=== PATIENT | male | born 1960 | race Caucasian/White ===

== ENCOUNTER 2017-10-11 06:56 | Emergency (ER) | payer OTHER, BC ==
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
[2017-10-11 07:14] VITALS: BP 140/96
== END 2017-10-11 07:42 | disposition home or self-care (01) ==
LOC: EDUNIT#
DX: S16.1XXA Strain of muscle, fascia and tendon at neck level, initial encounter (principal); S40.012A Contusion of left shoulder, initial encounter; I10 Essential (primary) hypertension; V59.40XA Driver of pick-up truck or van injured in collision with unspecified motor vehicles in traffic accident, initial encounter; Y92.410 Unspecified street and highway as the place of occurrence of the external cause; Y99.8 Other external cause status; Y93.89 Activity, other specified

== ENCOUNTER → 2017-10-12 | Outpatient (CLI) | payer OTHER, BC | LOC: BMCIMAGING 13:51 | PROVIDERS: ATTEND Internal Medicine | DX: M54.12 Radiculopathy, cervical region (principal); M79.602 Pain in left arm; M50.30 Other cervical disc degeneration, unspecified cervical region; M25.78 Osteophyte, vertebrae; M48.02 Spinal stenosis, cervical region; V89.9XXA Person injured in unspecified vehicle accident, initial encounter ==

== ENCOUNTER → 2017-10-27 | Outpatient (CLI) | payer BC, OTHER | LOC: FIMAGING 13:32 | PROVIDERS: ATTEND Internal Medicine | DX: M54.12 Radiculopathy, cervical region (principal); M50.30 Other cervical disc degeneration, unspecified cervical region; M48.02 Spinal stenosis, cervical region; V89.2XXD Person injured in unspecified motor-vehicle accident, traffic, subsequent encounter ==